=== PATIENT | female | born 1995 | race Caucasian/White ===

== ENCOUNTER 2017-12-24 01:48 | Emergency (ER) | payer BC, SELFPAY ==
[2017-12-24 01:50] VITALS: BP 126/76; PULSE 86; RESP 18; TEMP 36.2; O2SAT 100; BMI 37.9
--- NOTE | 2017-12-24 01:57 | CT_ITS ---
HISTORY: ETOH, HIT HEAD ON TOILET, SMALL LAC ON FOREHEAD TECHNIQUE: Multiple axial images were obtained of the brain without intravenous contrast. A radiation dose optimization technique was used for this scan. IV Contrast dosage and agent: None. COMPARISON: None FINDINGS: The ventricles are normal in size. Normal kenyon-white matter differentiation. No intracranial mass, hemorrhage, or acute intracranial disease. Posterior fossa structures are unremarkable. No suspicious extra-axial fluid collection. Tiny scalp hematoma of the midline frontal region. No associated calvarial fracture. The mastoids appear clear. Bilateral ethmoid sinus opacification. Partial opacification of the sphenoid sinuses bilaterally, worse on the right. Small fluid level within the right maxillary sinus. CT/Brain/Head without Contrast IMPRESSION: 1. Normal CT brain without contrast. 2. Tiny scalp hematoma of the midline frontal region. 3. Bilateral ethmoid and sphenoid sinusitis and right maxillary sinusitis with small fluid level. Individualized dose optimization techniques were used for this CT. at 0247 Reported and signed by: Crispin Price MD Electronically Signed: Crispin Price, at 2:45 EST Tel , Service support ,
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
--- NOTE | 2017-12-24 02:55 | ED.DEP ---
ED Disposition - Plan for ED Patient: Disposition: Home or Assisted Living Chief Complaint: ETOH Intox Instructions: ED Alcohol Abuse, ED Concussion Referrals: Care Physician,No Primary [Primary Care Provider] -
[2017-12-24 03:16] VITALS: BP 118/63; PULSE 79; RESP 16; O2SAT 98
--- NOTE | 2017-12-24 03:17 | ED.RN ---
THIS NURSE REVIEWED D/C INSTRUCTIONS WITH PT AND FRIENDS. PT VERBALIZED UNDERSTANDING OF INSTRUCTIONS. PT DENIES FURTHER NEEDS OR QUESTIONS AT THIS TIME.
== END 2017-12-24 03:17 | disposition home or self-care (01) ==
PROVIDERS: Emergency Provider Emergency Medicine; Family Provider Pediatrics; PCP Pediatrics
DX: S06.0X9A Concussion with loss of consciousness of unspecified duration, initial encounter (principal); S00.83XA Contusion of other part of head, initial encounter; F10.129 Alcohol abuse with intoxication, unspecified; R11.10 Vomiting, unspecified; W01.10XA Fall on same level from slipping, tripping and stumbling with subsequent striking against unspecified object, initial encounter; Y93.9 Activity, unspecified; Y92.9 Unspecified place or not applicable; Y99.9 Unspecified external cause status
CPT/HCPCS: 70450; 99282